=== PATIENT | female | born 1975 | race Two or more races ===

== ENCOUNTER 2020-10-21 12:40 | Emergency (ER) | payer OTHER ==
[~2020-10-21] VITALS: Ht 160 cm; Wt 67.8 kg
[~2020-10-21 12:40] MED LIST: K-TAB10 MEQ PO; KEFLEX500 MG PO; NORCO 5-325 TA1 EACH PO; OMEPRAZOLE20 MG PO; PRENATABS RX T1 EACH PO; ZANTAC150 MG PO; ZOFRAN4 MG PO
== END 2020-10-21 18:55 | disposition home or self-care (01) ==
LOC: ED 12:40
DX: R10.9 Unspecified abdominal pain (principal); K76.9 Liver disease, unspecified
CPT/HCPCS: 74177; 80053; 81001; 84703; 85025; 87077; 87088; 87186; 99284-25; J1885; J2405; Q9967